=== PATIENT | male | born 1955 | race Caucasian/White ===

== ENCOUNTER 2017-12-14 01:55 | Day surgery (SDC) | payer OTHER ==
[~2017-12-14] VITALS: Ht 175.3 cm; Wt 104.3 kg
[~2017-12-14 01:55] MED LIST: ASPI81TA94 PO; ATOR20TA22 PO; FENO134C5 PO; OMEP40CA48 PO; ONDA4TAB PO; VENL75CA4 PO
[2017-12-14] MEDS ORDERED: PROPOFOL EMUL(*) 10MG/ML 20 ML 20 ML ONE (08:52)
[2017-12-14] MEDS ORDERED: NORMOSOL R SOLN(*) 1000 ML BAG 1,000 ML IV PRN (12:40)
[2017-12-14] MEDS ORDERED: LIDOCAINE/SOD BICARB 8.4% SYR ID ONE (12:40)
[2017-12-14 12:45] VITALS: BP 143/106
[2017-12-14 14:18] VITALS: BP 112/80
[2017-12-14 14:30] VITALS: BP 124/89
[2017-12-14 14:41] VITALS: BP 137/97
[2017-12-14 15:02] VITALS: BP 128/93
[2017-12-14 15:03] VITALS: BP 122/75
== END 2017-12-14 15:23 | disposition home or self-care (01) ==
LOC: OR 01:55
PROVIDERS: ATTEND Family Medicine
DX: Z12.11 Encounter for screening for malignant neoplasm of colon (principal); K57.30 Diverticulosis of large intestine without perforation or abscess without bleeding
CPT/HCPCS: 00812; 45378; J2704

== ENCOUNTER 2018-09-29 19:18 | Emergency (ER) | payer OTHER ==
--- NOTE | 2018-09-29 19:22 | ER Report ---
History and Physical Time Seen By MD: 19:22 (DONNY MYLES) HPI/ROS CHIEF COMPLAINT: Chest pain HISTORY OF PRESENT ILLNESS: This is a 63-year-old male who presents to emergency department for chest pain. Patient states that about 10-15 minutes prior to arrival, he had a sudden onset of midsternal chest pain while just sitting, that radiated to the right and left bilaterally, he became diaphoretic, became very concerned went to the kitchen took an ibuprofen then came to the emergency department. No recent fevers or chills. No shortness of breath, no headaches, no visual disturbances. REVIEW OF SYSTEMS: Constitutional: No fever, no chills. Eyes: No discharge. ENT: No sore throat. Cardiovascular: As above. Respiratory: No cough, no shortness of breath. Gastrointestinal: No abdominal pain, no vomiting. Genitourinary: No hematuria. Musculoskeletal: No back pain. Skin: No rashes. Neurological: No headache. (DONNY MYLES) Allergies: Coded Allergies: No Known Drug Allergies (Unverified , 11/07/13) Home Meds Reported Medications Aspirin (ASPIRIN) 81 Mg Tab.chew, 81 MG PO QDAY, TAB.CHEW 12/07/17 Atorvastatin Calcium (LIPITOR) 20 Mg Tablet, 1 TAB PO QDAY, TAB 12/07/17 Venlafaxine Hcl (VENLAFAXINE HCL ER) 75 Mg Cap.er.24h, 75 MG PO QDAY 11/07/13 Past Medical/Surgical History The patient has a past medical and surgical history of CVA, hypercholesterolemia, sleep apnea, GERD, depression, tonsillectomy, wears glasses, hard of hearing, wears hearing aids. (DONNY MYLES) Reviewed Nurses Notes: Yes (DONNY MYLES) Hx Smoking: No Smoking Status: Never Smoker Hx Alcohol Use: No (DONNY MYLES) Constitutional Vital Sign - Last 24 Hours 09/29/18 09/29/18 09/29/18 09/29/18 19:22 19:23 19:26 19:33 Temp 97.7 Pulse 75 81 Resp 18 7 B/P (MAP) 172/104 (126) 159/98 (118) 159/98 Pulse Ox 91 89 O2 Delivery Room Air 09/29/18 09/29/18 09/29/18 09/29/18 19:40 19:46 19:48 19:50 Pulse ??? B/P (MAP) 149/106 (120) 153/95 (114) 150/138 (142) 09/29/18 09/29/18 09/29/18 09/29/18 20:00 20:03 20:10 20:18 Pulse 82 82 Resp 9 8 B/P (MAP) 163/107 (125) 156/101 (119) Pulse Ox 89 94 09/29/18 09/29/18 09/29/18 09/29/18 20:20 20:30 20:33 20:40 Pulse 79 Resp 14 B/P (MAP) 152/99 (116) 157/97 (117) 149/95 (113) Pulse Ox 92 09/29/18 09/29/18 09/29/18 09/29/18 20:48 20:50 21:00 21:03 Pulse 86 82 Resp 9 B/P (MAP) 145/96 (112) ???/??? (1665) Pulse Ox 93 92 09/29/18 09/29/18 09/29/18 09/29/18 21:10 21:15 21:20 21:30 Pulse 72 Resp 11 B/P (MAP) 144/87 (106) 139/88 (105) 136/86 (103) Pulse Ox 93 09/29/18 09/29/18 09/29/18 09/29/18 21:40 21:45 21:50 22:00 Pulse 74 Resp 13 B/P (MAP) 135/86 (102) 142/88 (106) 133/82 (99) Pulse Ox 93 09/29/18 09/29/18 09/29/18 09/29/18 22:05 22:10 22:20 22:30 Pulse 72 Resp 9 B/P (MAP) 122/80 (94) 131/87 (102) 131/84 (100) Pulse Ox 93 09/29/18 09/29/18 09/29/18 09/29/18 22:35 22:40 22:50 23:00 Pulse 64 Resp 14 B/P (MAP) 140/91 (107) 138/86 (103) 136/87 (103) Pulse Ox 92 09/29/18 23:05 Pulse 72 Resp 10 Pulse Ox 91 (RISHABH MON DO) Physical Exam General Appearance: The patient is alert, has no immediate need for airway protection and no signs of toxicity. Eyes: Pupils equal and round no pallor or injection. ENT, Mouth: Mucous membranes are moist. Respiratory: There are no retractions, lungs are clear to auscultation. Cardiovascular: Regular rate and rhythm, no murmurs, clicks or rubs. Gastrointestinal: Abdomen is soft and non tender, no masses, bowel sounds normal. Neurological: Alert and oriented 4. Moving all extremities. Following. No focal neuro deficits. Skin: Warm and dry, no rashes. Musculoskeletal: Neck is supple non tender. Extremities are nontender, nonswollen and have full range of motion. DIFFERENTIAL DIAGNOSIS: After history and physical exam differential diagnosis was considered for chest pain including but not limited to myocardial ischemia, pericarditis pulmonary embolus, chest wall pain, pleural inflammation and pulmonary infectious causes. (DONNY MYLES [facility]) Medical Decision Making Data Points Result Diagram: 09/29/18193109/29/181931 Laboratory Hematology Test 09/29/18 19:32 09/29/18 22:30 Red Blood Count 4.94 M/uL (4.00-5.60) Mean Corpuscular Volume 91.1 fL (80.0-96.0) Mean Corpuscular Hemoglobin 30.2 pg (26.0-33.0) Mean Corpuscular Hemoglobin Concent 33.2 g/dL (32.0-36.0) Red Cell Distribution Width 14.8 % (11.5-14.5) Mean Platelet Volume 9.3 fL (7.2-11.1) Neutrophils (%) (Auto) 62.8 % (39.4-72.5) Lymphocytes (%) (Auto) 27.3 % (17.6-49.6) Monocytes (%) (Auto) 6.5 % (4.1-12.4) Eosinophils (%) (Auto) 2.8 % (0.4-6.7) Basophils (%) (Auto) 0.6 % (0.3-1.4) Nucleated RBC Relative Count (auto) 0.0 /100WBC Neutrophils # (Auto) 4.1 K/uL (2.0-7.4) Lymphocytes # (Auto) 1.8 K/uL (1.3-3.6) Monocytes # (Auto) 0.4 K/uL (0.3-1.0) Eosinophils # (Auto) 0.2 K/uL (0.0-0.5) Basophils # (Auto) 0.0 K/uL (0.0-0.1) Nucleated RBC Absolute Count (auto) 0.00 K/uL D-Dimer Quantitative (PE/DVT) 0.87 ug/ml (0-0.50) Sodium Level 140 mmol/L (137-145) Potassium Level 3.8 mmol/L (3.5-5.0) Chloride Level 105 mmol/L (98-107) Carbon Dioxide Level 25 mmol/L (22-30) Blood Urea Nitrogen 24 mg/dl (9-21) Creatinine 1.30 mg/dl (0.66-1.25) Glomerular Filtration Rate Calc 55.8 Random Glucose 131 mg/dl (75-110) Calcium Level 8.7 mg/dl (8.4-10.2) Total Bilirubin 0.4 mg/dl (0.2-1.3) Aspartate Amino Transf (AST/SGOT) 73 U/L (0-35) Alanine Aminotransferase (ALT/SGPT) 48 U/L (0-56) Alkaline Phosphatase 85 U/L (0-126) Total Protein 6.7 g/dl (6.3-8.2) Albumin 4.0 g/dl (3.5-5.0) Amylase Level 48 U/L (0-110) Lipase 142 U/L (23-300) Troponin I < 0.012 ng/ml Chemistry Test 09/29/18 19:32 09/29/18 22:30 White Blood Count 6.5 k/uL (4.5-11.0) Red Blood Count 4.94 M/uL (4.00-5.60) Hemoglobin 14.9 g/dL (14.0-18.0) Hematocrit 45.0 % (42.0-52.0) Mean Corpuscular Volume 91.1 fL (80.0-96.0) Mean Corpuscular Hemoglobin 30.2 pg (26.0-33.0) Mean Corpuscular Hemoglobin Concent 33.2 g/dL (32.0-36.0) Red Cell Distribution Width 14.8 % (11.5-14.5) Platelet Count 184 K/uL (150-450) Mean Platelet Volume 9.3 fL (7.2-11.1) Neutrophils (%) (Auto) 62.8 % (39.4-72.5) Lymphocytes (%) (Auto) 27.3 % (17.6-49.6) Monocytes (%) (Auto) 6.5 % (4.1-12.4) Eosinophils (%) (Auto) 2.8 % (0.4-6.7) Basophils (%) (Auto) 0.6 % (0.3-1.4) Nucleated RBC Relative Count (auto) 0.0 /100WBC Neutrophils # (Auto) 4.1 K/uL (2.0-7.4) Lymphocytes # (Auto) 1.8 K/uL (1.3-3.6) Monocytes # (Auto) 0.4 K/uL (0.3-1.0) Eosinophils # (Auto) 0.2 K/uL (0.0-0.5) Basophils # (Auto) 0.0 K/uL (0.0-0.1) Nucleated RBC Absolute Count (auto) 0.00 K/uL D-Dimer Quantitative (PE/DVT) 0.87 ug/ml (0-0.50) Glomerular Filtration Rate Calc 55.8 Calcium Level 8.7 mg/dl (8.4-10.2) Total Bilirubin 0.4 mg/dl (0.2-1.3) Aspartate Amino Transf (AST/SGOT) 73 U/L (0-35) Alanine Aminotransferase (ALT/SGPT) 48 U/L (0-56) Alkaline Phosphatase 85 U/L (0-126) Total Protein 6.7 g/dl (6.3-8.2) Albumin 4.0 g/dl (3.5-5.0) Amylase Level 48 U/L (0-110) Lipase 142 U/L (23-300) Troponin I < 0.012 ng/ml Coagulation Test 09/29/18 19:32 D-Dimer Quantitative (PE/DVT) 0.87 ug/ml (RISHABH MON DO) EKG/Imaging EKG Interpretation 12 lead EKG: Time of EKG 1926. Rhythm: Normal sinus rhythm, ventricular rate 81 bpm. [place]: normal QRS: normal ST segments: No ST depression or elevation identified. No significant changes from the 11/07/2013 EKG. (DONNY MYLES Coy [facility]) EKG Interpretation 12 lead EK Rhythm: Normal sinus rhythm [place]: normal QRS: normal ST segments: normal, nonspecific T wave abnormality, unchanged from previous EKG from today at 1926 Imaging Results: CT scan of the CTA pulmonary angiogram was obtained. The results of the study are CT PE DATE: 09/29/2018 9:23 PM INDICATION: Chest pain, elevated d-dimer. COMPARISON: Same-day radiographs. TECHNIQUE: Axial CT angiogram was obtained through the chest with intravenous contrast. Sagittal and coronal MPR and MIP coronal reformations were also generated. 75 mL isovue 370. One of the following dose optimization techniques was utilized in the performance of this exam: Automated exposure control; adjustment of the mA and/or kV according to the patient's size; or use of an iterative reconstruction technique. Specific details can be referenced in the facility's radiology CT exam operational policy. FINDINGS: Thyroid / Thoracic Inlet: No visualized thyroid nodule or supraclavicular lymphadenopathy. Pulmonary Arteries: No pulmonary embolism. Heart and Aorta: Normal-size heart with no pericardial effusion. Nonaneurysmal thoracic aorta. Mediastinum and Jodie: No lymphadenopathy. Moderate size hiatal hernia. No evidence of acute inflammation or obstruction. Lungs and Pleura: No pleural effusion or pneumothorax. Mild scarring/atelectasis. Calcified granuloma in the left lower lobe. Breast and Axilla: No axillary lymphadenopathy. Upper Abdomen: No visualized acute abnormality. Bones and Soft Tissues: No suspicious osseous or soft tissue abnormality. IMPRESSION: 1. No pulmonary embolism or other acute cardiopulmonary abnormality. 2. Moderate size hiatal hernia with no definite evidence of acute complication. The study was read by the radiologist. I viewed the images myself on the PACS system. (RISHABH MON DO) ED Course/Re-evaluation Clinical Indication for ER IV: Hydration, IV Access ED Course The patient was admitted to room. A history and physical were obtained. Differential diagnoses were considered. An IV was started. A CBC, CMP, amylase and lipase were obtained as well as a troponin. A 1 L normal saline bolus was given. EKG showing normal sinus rhythm, no ST changes. Patient was given 283 mg chewable aspirin, patient took 200 mg ibuprofen prior to arrival. Nitropaste was applied. Laboratory studies unremarkable, negative initial troponin, did review this with the patient, we will repeat a troponin. Two-view chest x-ray showing moderate sized gas and fluid containing hiatal hernia, no acute cardiopulmonary findings. I have turned the patient over to Dr. Mon. Turned Over The care of the patient was turned over to Dr. Mon. Donny Myles, [facility] I authorize my typed signature that I authenticated this report. (DONNY MYLES [facility] ED Course Care was assumed at shift change with 2nd troponin pending. Patient's d-dimer was also elevated. Patient with a normal-appearing EKG, unchanged from pr evious. A CTA pulmonary angiogram was performed for an elevated d-dimer of 0.87. The CT scan was unremarkable. Patient's pain resolved with the GI cocktail. I suspect his pain is secondary to his hiatal hernia. Patient's on no acid blockers. He's advised Prilosec 20 mg per day [id number]. Patient's 2nd troponin at 2230 was unremarkable. Results are discussed with the patient. He is advised to follow-up with primary care. Patient wants to consider surgery for his hiatal hernia. He is given information to follow up with [facility]. Patient's provided a copy of his CT scan and chest x-ray on a disc. Decision to Disposition Date: Sep 29, 2018 Decision to Disposition Time: 22:03 (RISHABH MON DO) Depart Departure Latest Vital Signs Vital Signs Date Time Temp Pulse Resp B/P (MAP) Pulse Ox O2 Delivery O2 Flow Rate FiO2 09/29/18 23:05 72 10 91 09/29/18 23:00 136/87 (103) 09/29/18 19:26 97.7 Room Air (RISHABH MON DO) Impression: Primary Impression: Chest pain of uncertain etiology Additional Impressions: Hiatal hernia History of gastroesophageal reflux (GERD) History of hypertension History of hyperlipidemia Condition: Improved Disposition: HOME OR SELF-CARE Patient Instructions: Chest Pain (ED) Additional Instructions: Take Prilosec 20 mg daily to reduce your stomach acid You can use Tylenol for additional pain relief as needed Avoid NSAIDs other than your daily aspirin Patient was given information to follow-up with [facility] for consideration of hiatal hernia surgery. Follow-up with primary care if unimproved in 3-5 days Problem Qualifiers DONNY MYLES [facility] Sep 29, 2018 19:22 RISHABH MON DO Sep 29, 2018 22:05
[2018-09-29] MEDS ORDERED: ASPIRIN 81 MG CHEW PO ONE ×2 (19:25→19:35)
[2018-09-29] MEDS ORDERED: NS(*) 0.9% 1000 ML BAG 1,000 ML IV ONE ×2 (19:25)
[2018-09-29] MEDS ORDERED: NITROGLYCERIN OINT 1 GM PKT TP ONE (19:25)
[2018-09-29 20:04] LABS: PLATELET COUNT, AUTOMATED 184 K/uL (150-450)
--- NOTE | 2018-09-29 20:17 | RADIOLOGY IMAGING REPORT ---
FACILITY: [facility] - [place], [place] PATIENT NAME: Nemesio Jurado : 1955 MR: [id number] V: [id number] EXAM DATE: ORDERING PHYSICIAN: DOTTY BARRIENTOS TECHNOLOGIST: Location: [facility] Patient: Nemesio Jurado : 1955 Visit/Account:[id number] Date of Sevice: 09/29/2018 Examination: CHEST PA LAT Comparison: 11/07/2013 History: Chest Pain Findings: Cardiac and hilar contour size is within normal limits. Moderate-sized gas and fluid-filled hiatal hernia. No consolidation, nodule, or evidence of acute peribronchial inflammation. No pneumothorax, edema, or effusion. Nondistended gas-filled loop of colon in the visualized upper abdomen. No acute osseous abnormality. IMPRESSION: 1. No findings of acute cardiopulmonary disease. 2. Moderate-sized gas and fluid containing hiatal hernia. Report Dictated By: Eric Payne MD at 09/29/2018 8:10 PM Report E-Signed By: Eric Payne MD at 09/29/2018 8:12 PM WSN:[id number]
[2018-09-29] MEDS ORDERED: IOPAMIDOL 76% 150 ML INFUS BTL 150 ML ONE (20:57)
[2018-09-29] MEDS ORDERED: NS 0.9% 25 ML BAG 50 ML ONE (20:57)
--- NOTE | 2018-09-29 21:40 | RADIOLOGY IMAGING REPORT ---
FACILITY: [facility] PATIENT NAME: Nemesio Jurado : 1955 MR: [id number] V: [id number] EXAM DATE: ORDERING PHYSICIAN: RISHABH SIMS TECHNOLOGIST: Location: [facility] Patient: Nemesio Jurado : 1955 Visit/Account:[id number] Date of Sevice: 09/29/2018 CT PE DATE: 09/29/2018 9:23 PM INDICATION: Chest pain, elevated d-dimer. COMPARISON: Same-day radiographs. TECHNIQUE: Axial CT angiogram was obtained through the chest with intravenous contrast. Sagittal an d coronal MPR and MIP coronal reformations were also generated. 75 mL isovue 370. One of the follow ing dose optimization techniques was utilized in the performance of this exam: Automated exposure con trol; adjustment of the mA and/or kV according to the patient's size; or use of an iterative reconst ruction technique. Specific details can be referenced in the facility's radiology CT exam operationa l policy. FINDINGS: Thyroid / Thoracic Inlet: No visualized thyroid nodule or supraclavicular lymphadenopathy. Pulmonary Arteries: No pulmonary embolism. Heart and Aorta: Normal-size heart with no pericardial effusion. Nonaneurysmal thoracic aorta. Mediastinum and Jodie: No lymphadenopathy. Moderate size hiatal hernia. No evidence of acute inflam mation or obstruction. Lungs and Pleura: No pleural effusion or pneumothorax. Mild scarring/atelectasis. Calcified granul josep in the left lower lobe. Breast and Axilla: No axillary lymphadenopathy. Upper Abdomen: No visualized acute abnormality. Bones and Soft Tissues: No suspicious osseous or soft tissue abnormality. IMPRESSION: 1. No pulmonary embolism or other acute cardiopulmonary abnormality. 2. Moderate size hiatal hernia with no definite evidence of acute complication. Report Dictated By: Michele Sarah MD at 09/29/2018 9:23 PM Report E-Signed By: Michele Sarah MD at 09/29/2018 9:35 PM WSN:[email or web address]
[2018-09-29] MEDS ORDERED: LIDOCAINE 2% VISC SLN 15ML UDC PO ONE (22:45)
[2018-09-29] MEDS ORDERED: MAG HYD/AL HYD/SIMETH 30ML UDC PO ONE (22:45)
[2018-09-29 23:00] VITALS: BP 136/87
[2018-09-29] MEDS ORDERED: PANTOPRAZOLE SOD 20 MG TABEC PO ONE (23:05)
[2018-09-29] MEDS ORDERED: ACET/HYDROC 5/325MG TH ER ONLY 2 TAB/BOTTLE PO ONE (23:05)
--- NOTE | 2018-09-29 23:07 | EKG ---
FACILITY: [facility] [place] PATIENT NAME: PIEDAD WATSON : [id number] MR: [id number] V: [id number] EXAM DATE: ORDERING PHYSICIAN: RISHABH SIMS TECHNOLOGIST: MARCUS Test Reason : CHEST PAIN Blood Pressure : / mmHG Vent. Rate : 062 BPM Atrial Rate : 062 BPM P-R Int : 162 ms QRS Dur : 072 ms QT Int : 410 ms P-R-T Axes : 024 017 045 degrees QTc Int : 416 ms Normal sinus rhythm Nonspecific T wave abnormality Abnormal ECG When compared with ECG of 29-SEP-2018 19:26, No significant change was found Confirmed by DERIC HORAN ([id number]) on 09/30/2018 3:56:47 AM Referred By: Confirmed By:DERIC HORAN
--- NOTE | 2018-09-29 23:07 | EKG ---
[place] [facility] [place] PIEDAD WATSON : [id number] MR: [id number] V: [id number] EXAM DATE: ORDERING PHYSICIAN: DOTTY BARRIENTOS TECHNOLOGIST: MARCUS Test Reason : CHEST PAIN Blood Pressure : / mmHG Vent. Rate : 081 BPM Atrial Rate : 081 BPM P-R Int : 164 ms QRS Dur : 074 ms QT Int : 380 ms P-R-T Axes : 054 018 052 degrees QTc Int : 441 ms Normal sinus rhythm Normal ECG When compared with ECG of 07-NOV-2013 08:09, No significant change was found Confirmed by DERIC HORAN ([id number]) on 09/30/2018 3:56:30 AM Referred By: Confirmed By:DERIC HORAN
== END 2018-09-29 23:23 | disposition home or self-care (01) ==
LOC: ER 19:22
DX: R07.9 Chest pain, unspecified (principal); K44.9 Diaphragmatic hernia without obstruction or gangrene; I10 Essential (primary) hypertension; E78.5 Hyperlipidemia, unspecified
CPT/HCPCS: 36415; 71046; 71275; 82150; 83690; 84484; 85025; 85379; 93005; 96360; 99284; J7030; Q9967; 82040; 82247; 82310; 82374; 82435; 82565; 82947; 84075; 84132; 84155; 84295; 84450; 84460; 84520

== ENCOUNTER 2018-10-26 12:58 | Outpatient (RCR) | payer OTHER ==
[~2018-10-26 12:58] MED LIST changes: +PANT40TA65 PO; +VENL50TA23 PO
--- NOTE | 2018-10-30 15:46 | RADIOLOGY IMAGING REPORT ---
FACILITY: [facility] [place] PATIENT NAME: Nemesio Jurado : 1955 MR: [id number] V: [id number] EXAM DATE: ORDERING PHYSICIAN: VIRGEN TONY TECHNOLOGIST: [place] [facility] [place]esio Jur[place] : 1955 Visit/Account:[id number] Date of Sevice: 10/30/2018 Exam type: XR UPPER GI SERIES W/O KUB History: Hiatal hernia, GERD Comparison: None. Findings: Double contrast upper GI series was performed with thick and thin barium and air contrast. There was a moderate size hiatal hernia with mild narrowing at the GE junction. No mucosal erosions were iden tified. A large amount of gastroesophageal reflux was observed. No abnormality of the stomach duode nal bulb or duodenal C-loop was seen other than incidental duodenal diverticulum at the fourth portio n the duodenum. There also appear to be small diverticulum in the proximal jejunum. The dose area p roduct was 713.72 micro-Hand per meter squared IMPRESSION: 1. Moderate size hiatal hernia with a large amount of gastroesophageal reflux and mild narrowing at the lower esophageal sphincter. No mucosal erosions were identified. Small duodenal and jejunal diverticula Report Dictated By: Sydnee Cooper MD at 10/30/2018 3:39 PM Report E-Signed By: Sydnee Cooper MD at 10/30/2018 3:42 PM WSN:[email or web address]
== END 2018-10-30 18:00 | disposition home or self-care (01) ==
LOC: RAD 12:58 → EDSTATUS 10-30 12:58 → RAD 10-30 18:00
PROVIDERS: ATTEND Surgery
DX: R17 Unspecified jaundice (principal); R94.5 Abnormal results of liver function studies; K44.9 Diaphragmatic hernia without obstruction or gangrene; K57.10 Diverticulosis of small intestine without perforation or abscess without bleeding
CPT/HCPCS: 36415; 74240; 82040; 82247; 82248; 84075; 84155; 84450; 84460

== ENCOUNTER → 2018-10-31 | Outpatient (CLI) | payer OTHER ==
[~2018-10-31] MED LIST changes: +GADOBENATE 529MG/1ML 15ML VIAL IVP ONE; +NS(*) 0.9% 50 ML BAG 50 ML ONE
--- NOTE | 2018-10-31 14:45 | RADIOLOGY IMAGING REPORT ---
FACILITY: [facility] PATIENT NAME: Nemesio Jurado : 1955 MR: [id number] V: [id number] EXAM DATE: ORDERING PHYSICIAN: VIRGEN TONY TECHNOLOGIST: Location: [facility] Patient: Nemesio Jurado : 1955 Visit/Account:[id number] Date of Sevice: 10/31/2018 MR ABDOMEN MRCP W & W/O CONTRAST HISTORY: jaundice, elevated liver function tests TECHNIQUE: Multiplanar multisequence magnetic resonance imaging of the abdomen without and with intr avenous contrast including magnetic resonance cholangiopancreatography (MRCP). CONTRAST: 15 mL of MultiHance COMPARISON: CTA chest arch 2018 FINDINGS: Visualized lung bases: Grossly unremarkable. Liver: Is a 1.1 cm cyst in segment 4A/8 in the liver Gallbladder: Gallbladder is contracted and contains multiple stones Bile ducts: There is dilatation of the intrahepatic bile ducts, common hepatic duct, common bile duct which measures up to 1.3 cm in diameter. These findings are secondary to a 1 cm stone in the distal common bile duct Spleen: Negative. Adrenal glands: Negative. Pancreas: Negative. Kidneys: Tiny cyst upper pole the left kidney Vessels/spaces/nodes: No bulky adenopathy or ascities. Visualized GI: There is a large hiatal hernia Bones/soft tissues: Unremarkable. IMPRESSION: There is dilatation of the intrahepatic and extrahepatic biliary tree with the common bile duct measu ring up to 1.3 cm in diameter secondary to a 1 cm stone lodged in the distal common bile duct. The gallbladder is contracted and contains multiple stones Large hiatal hernia Results were called to VIRGEN TONY at 10/31/2018 2:40 PM. Report Dictated By: Sydnee Cooper MD at 10/31/2018 1:49 PM Report E-Signed By: Sydnee Cooper MD at 10/31/2018 2:40 PM WSN:[email or web address]
== END ==
LOC: MRI 00:24
PROVIDERS: ATTEND Surgery
DX: K44.9 Diaphragmatic hernia without obstruction or gangrene (principal); K80.41 Calculus of bile duct with cholecystitis, unspecified, with obstruction; N28.1 Cyst of kidney, acquired
CPT/HCPCS: 74183; A9577; J7050

== ENCOUNTER 2018-11-08 00:10 | Observation (INO) | payer OTHER ==
[2018-11-08] VITALS (7 sets, daily range): BP systolic 125–159; BP diastolic 78–101
[~2018-11-08] VITALS: Ht 175.3 cm; Wt 101.6 kg
[~2018-11-08 00:10] MED LIST changes: -GADOBENATE 529MG/1ML 15ML VIAL IVP ONE; +LIDOCAINE/SOD BICARB 8.4% SYR ID ONE; +MIDAZOLAM 2 MG/2 ML VIAL IVP PRN; +NORMOSOL R SOLN(*) 1000 ML BAG 1,000 ML IV PRN; -NS(*) 0.9% 50 ML BAG 50 ML ONE
[2018-11-08] MEDS ORDERED: ACETAMINOPHEN 500 MG TAB PO ONE (06:10)
[2018-11-08] MEDS ORDERED: INDOCYANINE GREEN 25 MG VIAL IVP ONE (06:10)
[2018-11-08] MEDS ORDERED: PREGABALIN 150 MG CAPSULE PO ONE (06:10)
[2018-11-08] MEDS ORDERED: AMPICILLIN/SULBACT (*) 3 GM VL 3 GM in NS(*) 0.9% 100 ML MINI-BAG 100 ML IVPB ONE (06:10)
[2018-11-08 11:58] LABS: PLATELET COUNT, AUTOMATED 171 K/uL (150-450)
[2018-11-08] MEDS ORDERED: ROCURONIUM BROM 10 MG/ML 10 ML ONE (12:58)
[2018-11-08] MEDS ORDERED: HYDROmorphone HCL 2 MG/ML SDV ONE (12:58)
[2018-11-08] MEDS ORDERED: PROPOFOL EMUL(*) 10MG/ML 20 ML 40 ML ONE (12:58)
[2018-11-08] MEDS ORDERED: DEXAMETHASONE SOD PHOS 10MG/ML ONE (12:58)
[2018-11-08] MEDS ORDERED: ONDANSETRON 4 MG/2 ML VIAL ONE (12:58)
[2018-11-08] MEDS ORDERED: ROPIVACAINE 0.5% 20 ML VIAL ONE (13:08)
[2018-11-08] MEDS ORDERED: LIDOCAINE/SOD BICARB 8.4% SYR ID ONE (13:20)
[2018-11-08] MEDS ORDERED: MIDAZOLAM 2 MG/2 ML VIAL IVP PRN (13:20)
[2018-11-08] MEDS ORDERED: NORMOSOL R SOLN(*) 1000 ML BAG 1,000 ML IV PRN (13:20)
[2018-11-08] MEDS ORDERED: SUGAMMADEX SOD 200 MG/2 ML SDV ONE ×2 (15:37→15:48)
[2018-11-08] MEDS ORDERED: NS(*) 0.9% 1000 ML BAG 1,000 ML IV PRN (16:27)
[2018-11-08] MEDS ORDERED: ONDANSETRON 4 MG/2 ML VIAL IVP PRN (16:30)
[2018-11-08] MEDS ORDERED: FLUSH 10 ML SYR IVP PRN (16:30)
[2018-11-08] MEDS ORDERED: MORPHINE 2 MG/ML SYR IVP PRN (16:30)
--- NOTE | 2018-11-08 16:42 | Post Operative Progress Note ---
Post Operative Progress Note Date: November 08, 2018 Time: 16:31 Surgeon: Santiago Dictation number: [id number] Anesthesia: GETA by Dr. Garcia Pre-Op Diagnosis: Symptomatic Cholelithiasis GERD Hiatal Hernia Non-cardiac chest pain Post-Op Diagnosis: Acute on chronic cholecystitis GERD Hiatal hernia Non-cardiac chest pain Findings: Very inflamed gallbladder full of stones Procedure(s): EGD with biopsies Robotic cholecystectomy Specimen Removed:(May be N/A): Duodenum biopsies Pyloritek GB and contents Complications: None Fluids: See anesthesia record Estimated Blood Loss: Minimal Date OP Note Dictated: November 08, 2018 Time OP Note Dictated: 16:33 VIRGEN TONY MD November 08, 2018 16:42
--- NOTE | 2018-11-08 18:03 | OPERATIVE REPORT 1 ---
EVENT DATE: November 08, 2018 SURGEON: Papito Henderson MD ANESTHESIOLOGIST: Luis Garcia MD ANESTHESIA: General endotracheal anesthesia. PREOPERATIVE DIAGNOSES 1. Gastroesophageal reflux disease. 2. Hiatal hernia. 3. Noncardiac chest pain. 4. Symptomatic cholelithiasis. POSTOPERATIVE DIAGNOSES 1. Gastroesophageal reflux disease. 2. Hiatal hernia. 3. Noncardiac chest pain. 4. Symptomatic cholelithiasis. 5. [id number] cholecystitis. PROCEDURES PERFORMED 1. Esophagogastroduodenoscopy with biopsies. Please refer to the endoscopy note for details about this. 2. Robotic cholecystectomy. COMPLICATIONS None. CONDITION Stable. BLOOD LOSS Minimal. FINDINGS The patient's EGD revealed a hiatal hernia, but otherwise was unremarkable. Gallbladder was very inflamed and edematous, and this was a somewhat difficult gallbladder surgery due to the inflammation and lack of clear tissue planes. SPECIMENS 1. Duodenal biopsies from endoscopy. 2. PyloriTek. 3. Gallbladder and contents. DRAINS 10 mm flat Jose Angel-Garrett drain was left in the right upper quadrant in the gallbladder fossa. INDICATIONS This is a 63-year-old gentleman who was referred to my office after having had several episodes of noncardiac chest pain. He was found to have gallstones, and in fact, liver function tests checked by his primary care provider were elevated with a bilirubin of 7. He also was found to have moderate-sized hiatal hernia with a lot of reflux on an upper GI study. MRCP was completed, which revealed a markedly dilated common bile duct with a common bile duct stone. ERCP was completed with sphincterotomy and lithotripsy with clearance of the common duct of stones. A biliary stent was placed, and he was referred back to me for cholecystectomy. I also consented him for EGD, which was part of our workup for his noncardiac chest pain. DESCRIPTION OF PROCEDURE Patient was brought to the operating room and placed supine on the operating table. General endotracheal anesthesia was administered, and the EGD was completed. Please refer to the endoscopy report for details about this, but other than the hiatal hernia, it was relatively unremarkable. After the EGD was completed, his abdomen was prepped and draped in a sterile fashion. Timeout was completed again. I injected the infraumbilical skin with 0.5% ropivacaine plain. I made an incision in the skin and dissected through the dermis and the subcutaneous fat. I identified the midline fascia. I made a vertical incision in the midline fascia, grasped the fascial edges with Myra clamps, and retracted the fascia towards the ceiling. I then bluntly entered the peritoneal cavity with my finger. I placed two interrupted 0 Vicryl sutures transversely through the vertical fascial defect and inserted a 12 mm Carrie robotic port in through this wound and secured it in place with sutures. I insufflated the abdomen to a pressure of 15 mmHg and then inserted the remediation project engineer and the camera in through this port. Next, I placed an 8 mm robotic port in the right mid abdomen and two 8 mm robotic ports in the left abdomen, one in the anterior axillary line subcostal space and one about half way between the umbilical port and the superolateral left port. The patient was placed in a reverse Trendelenburg and planed towards his left to remove the viscera from the right upper quadrant. Then, the robot was brought in, docked, and targeted, and the instruments inserted. I then scrubbed out and went to the console and then noted immediately that the omentum was just adherent to the gallbladder. I was able to strip it down as there was a plane between the omentum and the gallbladder, but on grasping the gallbladder, it was very edematous, and in fact, the wall tore easily with the robotic instruments. As I was dissecting down, ultimately I ended up putting a V-Loc suture in to suture through the wall of the gallbladder to provide a better way to retract it, but ultimately I was able to dissect down to the infundibulum. I did have to put another 5 mm port in and had my assistant head cashier with a wavy grasper push down on the transverse colon and omentum in order to gain enough exposure and seen enough of the infundibulum. I continued to use mostly blunt, but some hook dissection to clean off the infundibulum and identified the cystic artery and duct. I clipped the artery proximally and distally and divided it between the clips. With quite a bit of effort, I was ultimately able to find the cystic duct, which I cleaned off circumferentially and then clipped proximally and distally and divided between clips. Interestingly, I did make a hole in the cystic duct, but there was no bile coming up distally, so assumed the duct was sclerosed. I then the gallbladder from the gallbladder fossa by dividing posterior attachments and then placing the gallbladder in a surgical specimen retrieval bag and removed it from abdomen through the umbilical port site. Because of how difficult this case was and how much inflammation there was, I went ahead and left a 10 mm flat Jose Angel-Garrett drain in the subhepatic space running through the gallbladder fossa medially, and it came out through the extra 5 mm port I placed. I sutured the drain to the skin with a single 0 silk suture. After inspecting the right upper quadrant and gallbladder fossa as well as cystic duct and artery stumps and seeing no bile leaks or bleeding, I desufflated the abdomen and removed all the ports and then closed the midline fascia with running 0 Vicryl suture. I then tied all three of these sutures down with good reapproximation of the fascial edges and no remaining fascial defect. I then closed the skin at each port site with 4-0 Monocryl subcuticular suture. The skin was cleaned and dried, and Steri-Strips were applied, followed by sterile surgical dressings and a drain dressing. Patient was awakened, extubated in the operating room, and transported to the recovery room in stable condition having tolerated the procedure without any apparent problems. ISREAL
[2018-11-08] MEDS: PIPERACILLIN/TAZO*3.375GM VIAL 3.375 GM in NS(*) 0.9% 100 ML MINI-BAG 100 ML IVPB SCH ×2 (18:18→23:47)
[2018-11-08] MEDS: DOCUSATE SODIUM 100 MG CAP PO SCH (20:57)
[2018-11-09] MEDS: PIPERACILLIN/TAZO*3.375GM VIAL 3.375 GM in NS(*) 0.9% 100 ML MINI-BAG 100 ML IVPB SCH ×2 (05:48→11:32)
[2018-11-09] MEDS: oxyCODON/ACET (*)5/325MG (CII) 1 TAB TAB PO PRN ×2 (06:27→13:34)
[2018-11-09 06:36] LABS: PLATELET COUNT, AUTOMATED 162 K/uL (150-450)
[2018-11-09 07:01] VITALS: BP 130/85
[2018-11-09 07:05] VITALS: BP 139/90
--- NOTE | 2018-11-09 08:01 | General Surgery Progress Note ---
Subjective Progress Notes Subjective No complaints this morning. Hasn't yet had breakfast. Physical Exam Vital Signs Date Time Temp Pulse Resp B/P (MAP) Pulse Ox O2 Delivery O2 Flow Rate FiO2 11/09/18 07:05 98.4 72 18 139/90 (106) 95 Nasal Cannula 2.0 Intake and Output 11/09/18 06:59 Intake Total 3000 ml Output Total 40 ml Balance 2960 ml Intake IV Total 3000 ml Output Drainage Total 40 ml # Voids 3 General Appearance: Alert, Awake, No Acute Distress, Afebrile GI: Other (Soft, appropriate postop TTP, dressings C/D/I. Drain with serous drainage, no bile.) Extremities: Warm, Perfused Result Diagram: 11/09/1860411/09/18604 Assessment and Plan Problems: (1) Cholecystitis Status: Chronic Assessment & Plan: 11/09/18: POD#1 s/p robotic cholecystectomy and EGD with biopsies. Gallbladder was very infected/inflamed. Doing well this morning. Will let him eat and then I'll check on him later today. If he's doing well and there's no bile in the drain I'll remove the drain and send him home later today. Condition Stable. Time Spent: < 30 min Exam Sepsis Risk: No Definite Risk VIRGEN TONY MD November 09, 2018 08:01
[2018-11-09] MEDS ORDERED: NEOMYCIN/POLYMYX/BACITR OINT 1 PACKET TP ONE (08:04)
[2018-11-09] MEDS: DOCUSATE SODIUM 100 MG CAP PO SCH (08:25)
[2018-11-09] MEDS ORDERED: PANTOPRAZOLE SOD 40 MG TABEC PO SCH (09:00)
[2018-11-09] MEDS ORDERED: [UNRECOGNIZED DRUG - OTHER] PO SCH (09:00)
[2018-11-09 10:48] VITALS: BP 131/85
[2018-11-09] MEDS ORDERED: DOCU-202 PO (14:52)
[2018-11-09] MEDS ORDERED: PER PO (14:52)
--- NOTE | 2018-11-09 14:56 | Short(Outpt) Discharge Summary ---
Discharge Summary Reason for Hosp/Final Diag: (1) Cholecystitis Status: Chronic Hospital Course & Plan: 11/09/18: POD#1 s/p robotic cholecystectomy and EGD with biopsies. Gallbladder was very infected/inflamed. Doing well this morning. Will let him eat and then I'll check on him later today. If he's doing well and there's no bile in the drain I'll remove the drain and send him home later today. 11/09/18 (afternoon): Doing well. Tolerating diet. No bile in drain. Drain removed. Will d/c to home today. Departure Discharge to: Home, Self Care Discharge Instructions Home Meds Active Scripts Oxycodone/Acetaminophen (OXYCODONE/ACETAMINOPHEN 5MG/325 MG) 5 Mg/325 Mg Tab, 1 TAB PO Q4H PRN for MODERATE PAIN, #20 TAB 0 Refills Prov:VIRGEN TONY MD 11/09/18 Docusate Sodium (DOCUSATE SODIUM) 100 Mg Capsule, 1 CAP PO BID, #30 CAPSULE 0 Refills Prov:VIRGEN TONY MD 11/09/18 Pantoprazole Sodium (PANTOPRAZOLE SODIUM) 40 Mg Tablet.dr, 1 TAB PO DAILY, #30 TAB 3 Refills Prov:VIRGEN TONY MD 10/23/18 Reported Medications Venlafaxine Hcl (VENLAFAXINE HCL) 50 Mg Tablet, 50 MG PO DAILY 10/24/18 Aspirin (ASPIRIN) 81 Mg Tab.chew, 81 MG PO QDAY, TAB.CHEW 12/07/17 Atorvastatin Calcium (LIPITOR) 20 Mg Tablet, 1 TAB PO QDAY, TAB 12/07/17 Follow up Referrals: General Surgery - 11/21/18 @ Surgery, General with VIRGEN TONY MD You have a follow up appointment scheduled with Dr. Tony on 11/21/18, at 1:30pm. Diet: Regular Activity: As Tolerated Special Instructions: You may remove the dressings on 11/10/18, then you can shower. After showering, leave the incisions open to air but you may cover the drain site with dry gauze if it is draining at all and change this dressing daily until there's no further drainage. Leave the steristrips in place until they fall off on their own. Do not immerse the incisions for 2 weeks. VIRGEN TONY MD November 09, 2018 14:56
[2018-11-09 15:04] VITALS: BP 153/69
== END 2018-11-09 14:51 | disposition home or self-care (01) ==
LOC: OR 00:10 → MED 17:20 → INTOOBSV 17:20
PROVIDERS: ADMIT Surgery; ATTEND Surgery
DX: K80.10 Calculus of gallbladder with chronic cholecystitis without obstruction (principal); K44.9 Diaphragmatic hernia without obstruction or gangrene; K21.9 Gastro-esophageal reflux disease without esophagitis; R07.9 Chest pain, unspecified
CPT/HCPCS: 36415; 43239; 47562; 82248; 83690; 85025; 87077; 88304; 88305; G0378; J0295; J1100; J1170; J2250; J2405; J2543; J2704; J2795; S2900; 82040; 82247; 82310; 82374; 82435; 82565; 82947; 84075; 84132; 84155; 84295; 84450; 84460; 84520